=== PATIENT | male | born 1965 | race Caucasian/White ===

== ENCOUNTER 2016-10-28 15:19 | Emergency (ER) | payer OTHER ==
[~2016-10-28] VITALS: Ht 182.9 cm; Wt 86.4 kg
[~2016-10-28 15:19] MED LIST: ABILIFY10 MG PO; ADVAIR 250/501 DISK IH; ANTIVERT25 MG PO; BACTROBAN CREAM15 GM TP; BACTROBAN OINTM22 GM TP; BUSPAR5 MG PO; CLEOCIN300 MG PO; CLINDAMYCIN HC300 MG PO; CREON DR 12,001 EAC1 PO; FAMOTIDINE20 MG PO; FIORICET 50-301 EACH PO; FLEXERIL10 MG PO; FLONASE16 G1 BOTH NARES; FLUOXETINE HCL40 MG PO; GABAPENTIN100 MG PO; GABAPENTIN400 MG PO; HYDROCODON-ACE1 EAC7 PO; LEVOFLOXACIN500 MG PO; LORTAB 5-325 M1 EACH PO; LYRICA100 MG PO; LYRICA150 MG PO; LYRICA75 MG PO; MEDROL DOSEPAK4 MG PO; MELOXICAM15 MG PO; METADATE CD60 MG PO; METHYLPHENIDATE10 M1 PO; METHYLPHENIDATE60 MG PO; MIRAPEX ER3.75 MG PO; MOBIC7.5 MG PO; MORPHINE SULFAT15 M1 PO; NAPROSYN500 MG PO; NAPROXEN500 MG PO; NORCO 5/3251 TABLET PO; NYSTATIN-TRIAMC15 GM TP; OLANZAPINE10 MG PO; OMEPRAZOLE20 MG PO; OXAYDO5 MG PO; OXYCODONE HCL5 MG PO; PERCOCET 5-3251 EACH PO; PERIDEX1 ML MM; PREDNISONE10 MG PO; PREDNISONE20 MG PO; PROAIR HFA8.5 GM IH; PROAIR RESPICL90 MCG IH; PROCTOSOL-HC28.35 GM PR; PROZAC20 MG PO; PROZAC40 MG PO; RHINOCORT AQUA8.6 G1 NS; RITALIN10 MG PO; RITALIN20 MG PO; ULTRAM50 MG PO; VALIUM2 MG PO; VENTOLIN HFA18 GM IH; VICODIN ES 7.51 EAC1 PO
[2016-10-28] MEDS ORDERED: VALIUM2 MG PO (19:35)
[2016-10-28] MEDS ORDERED: MEDROL DOSEPAK4 MG PO (19:35)
[2016-10-28] MEDS ORDERED: PERCOCET 5/31 TABLET PO (19:35)
[2016-10-28 19:51] VITALS: BP 148/96
== END 2016-10-28 19:56 | disposition home or self-care (01) ==
LOC: EME 15:19
DX: M54.9 Dorsalgia, unspecified (principal); G89.29 Other chronic pain
CPT/HCPCS: 99281; 99285; J1100; J1170; J1885

== ENCOUNTER 2016-11-02 13:25 | Emergency (ER) | payer OTHER ==
[~2016-11-02] VITALS: Ht 182.9 cm; Wt 85.2 kg
[~2016-11-02 13:25] MED LIST changes: +PERCOCET 5/31 TABLET PO
[2016-11-02] MEDS ORDERED: ANUSOL HC,ANUCO25 MG PR (16:01)
[2016-11-02] MEDS ORDERED: VALIUM5 MG PO (16:01)
[2016-11-02] MEDS ORDERED: ANUSOL-HC21 GM PR (16:01)
[2016-11-02] MEDS ORDERED: INDOCIN25 MG PO (16:01)
[2016-11-02] MEDS ORDERED: ULTRACET1 TABLET PO (16:01)
[2016-11-02 16:22] VITALS: BP 166/108
[2016-11-02 16:32] LABS: POC NON-PRINT COM 1 ND
== END 2016-11-02 16:30 | disposition home or self-care (01) ==
LOC: EME 13:25
PROVIDERS: Physician Assistant
DX: M54.5 Low back pain (principal); G89.29 Other chronic pain; M54.16 Radiculopathy, lumbar region; K64.9 Unspecified hemorrhoids; K60.2 Anal fissure, unspecified; R03.0 Elevated blood-pressure reading, without diagnosis of hypertension; J44.9 Chronic obstructive pulmonary disease, unspecified; M79.7 Fibromyalgia; Z87.442 Personal history of urinary calculi; F17.200 Nicotine dependence, unspecified, uncomplicated
CPT/HCPCS: 82272; 99281; 99284; J1885; J3010

== ENCOUNTER 2017-07-19 11:45 | Emergency (ER) | payer OTHER ==
[~2017-07-19] VITALS: Ht 185.4 cm; Wt 85.9 kg
[~2017-07-19 11:45] MED LIST changes: +ABILIFY20 MG PO; +ANUSOL HC,ANUCO25 MG PR; +ANUSOL-HC21 GM PR; +COMBIVENT RESPIM4 GM IH; +INDOCIN25 MG PO; +LEXAPRO10 MG PO; +ULTRACET1 TABLET PO; +VALIUM5 MG PO
[2017-07-19 11:55] VITALS: BP 129/85
== END 2017-07-19 13:26 | disposition left against medical advice (07) ==
LOC: EME 11:45
DX: M54.5 Low back pain (principal); Z88.0 Allergy status to penicillin; Z88.8 Allergy status to other drugs, medicaments and biological substances
CPT/HCPCS: 99281; 99284

== ENCOUNTER 2017-11-09 09:08 | Emergency (ER) | payer OTHER ==
[~2017-11-09] VITALS: Ht 182.9 cm; Wt 94.3 kg
[2017-11-09] MEDS ORDERED: VALIUM5 MG PO (13:06)
[2017-11-09] MEDS ORDERED: INDOCIN50 MG PO (13:06)
[2017-11-09 13:44] VITALS: BP 132/70
== END 2017-11-09 13:45 | disposition home or self-care (01) ==
LOC: EME 09:08
DX: M54.41 Lumbago with sciatica, right side (principal); M51.37 Other intervertebral disc degeneration, lumbosacral region; G89.29 Other chronic pain; M25.551 Pain in right hip; J44.9 Chronic obstructive pulmonary disease, unspecified; M79.7 Fibromyalgia; F32.9 Major depressive disorder, single episode, unspecified; K21.9 Gastro-esophageal reflux disease without esophagitis; F41.9 Anxiety disorder, unspecified; Z86.73 Personal history of transient ischemic attack (TIA), and cerebral infarction without residual deficits; Z88.0 Allergy status to penicillin; Z88.8 Allergy status to other drugs, medicaments and biological substances
CPT/HCPCS: 72100; 73502; 99281; 99284; J1100; J3010

== ENCOUNTER 2017-12-08 08:55 | Emergency (ER) | payer OTHER ==
[~2017-12-08] VITALS: Ht 185.4 cm; Wt 89.8 kg
[~2017-12-08 08:55] MED LIST changes: +INDOCIN50 MG PO
[2017-12-08] MEDS ORDERED: PREDNISONE20 MG PO (10:30)
[2017-12-08] MEDS ORDERED: FLEXERIL10 MG PO (10:30)
[2017-12-08] MEDS ORDERED: MOTRIN800 MG PO (10:30)
[2017-12-08] MEDS ORDERED: LIDODERM 5% P1 PATCH TD (10:30)
[2017-12-08 10:40] VITALS: BP 130/86
== END 2017-12-08 10:41 | disposition home or self-care (01) ==
LOC: EME 08:55
DX: M54.5 Low back pain (principal); G89.29 Other chronic pain; M79.604 Pain in right leg; W06.XXXA Fall from bed, initial encounter; M51.37 Other intervertebral disc degeneration, lumbosacral region; Z88.0 Allergy status to penicillin; Z87.891 Personal history of nicotine dependence
CPT/HCPCS: 72100; 99281; 99284; J7512

== ENCOUNTER → 2018-01-16 | Outpatient (CLI) | payer MEDICARE, OTHER ==
[~2018-01-16] MED LIST changes: -ABILIFY20 MG PO; +ABILIFY30 MG PO; +ALL DAY ALLERGY10 M3 PO; +ATROVENT H200 INHALA IH; +LIDODERM 5% P1 PATCH TD; +MOTRIN800 MG PO; +RHINOCORT ALL8.43 ML BOTH NARES
== END | disposition home or self-care (01) ==
LOC: CDC 09:53
DX: Z01.810 Encounter for preprocedural cardiovascular examination (principal); R22.2 Localized swelling, mass and lump, trunk; R00.1 Bradycardia, unspecified
CPT/HCPCS: 93000

== ENCOUNTER 2018-03-13 05:36 | Day surgery (SDC) | payer OTHER ==
[~2018-03-13] VITALS: Ht 182.9 cm; Wt 90.7 kg
[~2018-03-13 05:36] MED LIST changes: +DULERA 100 MCG/13 GM IH; +PROTONIX40 MG PO
[2018-03-13 06:11] VITALS: BP 139/96
[2018-03-13] MEDS ORDERED: NORCO 5/3251 TABLET PO (08:19)
[2018-03-13 09:21] VITALS: BP 130/84
[2018-03-13 10:01] VITALS: BP 123/73
== END 2018-03-13 10:00 | disposition home or self-care (01) ==
LOC: SDC
PROC: 0JB70ZZ Excision of Back Subcutaneous Tissue and Fascia, Open Approach (ICD-10-PCS; principal; 2018-03-13)
DX: D17.1 Benign lipomatous neoplasm of skin and subcutaneous tissue of trunk (principal); J44.9 Chronic obstructive pulmonary disease, unspecified; R00.1 Bradycardia, unspecified; M79.7 Fibromyalgia; Z87.891 Personal history of nicotine dependence; Z88.0 Allergy status to penicillin
CPT/HCPCS: 88304; J0330; J1100; J1885; J2250; J2405; J3010; J3370